=== PATIENT | female | born 1985 | race Caucasian/White ===

== ENCOUNTER 2018-09-15 13:16 | Day surgery (SDC) | payer BC ==
[2018-09-15] MEDS ORDERED: PROPOFOL 40 ML (14:58)
[2018-09-15] MEDS ORDERED: LIDOCAINE 2% (SDV) 5 ML INJ (14:58)
[2018-09-15] MEDS ORDERED: ONDANSETRON 4 MG INJ IV (15:00)
[2018-09-15] MEDS ORDERED: EPHEDrine SULFATE 50 MG/5 ML SYG IV (15:00)
[2018-09-15] MEDS ORDERED: LABETALOL HCL 20MG INJ IV (15:00)
[2018-09-15] MEDS ORDERED: FENTAnyl 50 MCG/ML VIAL IV (15:00)
[2018-09-15] MEDS ORDERED: hydrALAzine 20 MG INJ IV (15:00)
== END 2018-09-15 16:53 | disposition home or self-care (01) ==
LOC: GIL 13:16
DX: K44.9 Diaphragmatic hernia without obstruction or gangrene (principal); E03.9 Hypothyroidism, unspecified
CPT/HCPCS: 43239; 84703; 88305; 88312

== ENCOUNTER 2018-12-04 10:22 | Emergency (ER) | payer BC | END 2018-12-04 11:37 | disposition home or self-care (01) | LOC: FTE 10:22 | DX: J32.0 Chronic maxillary sinusitis (principal); H93.8X3 Other specified disorders of ear, bilateral | CPT/HCPCS: 99283 ==